=== PATIENT | male | born 1980 | race Caucasian/White ===

== ENCOUNTER 2016-11-23 21:55 | Inpatient (IN) ==
[2016-11-23 23:32] LABS: MANUAL DIFF NEEDED? NO; URINE CULTURE NEEDED? NO; URINE MICRO REVIEW NEEDED? NO; URINE SOURCE CLEAN CATCH
[2016-11-23 23:34] LABS: BASO% 0.2 % (0.0-0.8); EOS# 0.04 X1000 (0.0-0.7); EOS% 0.2 % (0.0-10.0); HEMATOCRIT 38.4 % (42.0-52.0); HEMOGLOBIN 12.8 g/dL (14.0-18.0); IMM GRAN# 0.07 X1000 (0.0-0.04); IMM GRAN% 0.4 % (0.0-0.5); LYMPH% 13.3 % (20.5-51.1); MCH 28.9 PG (27-31); MCHC 33.3 g/dL (33-37); MCV 86.7 FL (81-99); MONO# 1.53 X1000 (0.11-0.59); MONO% 9.3 % (1.7-9.3); MPV 8.8 FL (7.4-10.4); NEUT% 76.6 % (42.2-75.2); PLT 675 X1000 (130-400); RBC 4.43 XMIL (4.7-6.1)
[2016-11-23 23:36] LABS: BILIRUBIN URINE NEGATIVE (NEGATIVE); BLOOD URINE MODERATE (NEGATIVE); COLOR YELLOW; GLUCOSE URINE NEGATIVE (NEGATIVE); LEUKOCYTES URINE NEGATIVE (NEGATIVE); NITRITE URINE NEGATIVE (NEGATIVE); PROTEIN URINE TRACE mg/dL (NEGATIVE); SP GRAVITY URINE 1.028; TURBIDITY URINE CLEAR (CLEAR); UR EPITHELIAL CELLS <10 /HPF (<10); URINE BACTERIA NEGATIVE /HPF; URINE RBC <10 /HPF (<10); URINE WBC <10 /HPF (<10); UROBILINOGEN URINE NORMAL (NORMAL)
[2016-11-23 23:59] LABS: AGAP 15; ALKALINE PHOSPHATASE 63 U/L (32-122); BUN 17 mg/dL (8-22); CALCIUM 9.5 mg/dL (8.8-10.2); CHLORIDE 100 mmol/L (98-107); COSMO 285; GOT 24 U/L (10-34); GPT 13 U/L (10-44); LIPASE 15 U/L (13-60); POTASSIUM 4.2 mmol/L (3.5-5.1); SODIUM 142 mmol/L (136-145); TCO2 27 mmol/L (25-35); TOTAL PROTEIN 8.2 g/dL (6.3-8.3)
--- NOTE | 2016-11-24 00:14 | PROVIDER DOCUMENTATION ---
This chart was entered by Carlton Joseph Scribe, acting as scribe for Angel Cornelius MD. HPI-Abdominal Pain/GI Problem - General Chief Complaint: Abdominal Pain Stated Complaint: LT SIDE PAIN Time Seen by Provider: 11/23/16 22:12 Source: patient, ophthalmology technician Allergies/Adverse Reactions: Patient Allergies Allergy/AdvReac Type Severity Reaction Status Date / Time No Known Allergies Allergy Verified 11/23/16 23:10 Home Medications: Home Medication List Medication Instructions Recorded Confirmed Last Taken Type Meloxicam [Meloxicam] 1 each PO DAILY 11/23/16 11/23/16 Unknown History - History of Present Illness-ABD Nature of Presenting Problems: Pt suzanna 36 yowm who presents ot ER with CC of constant left sided abdominal pain x1-2 months. Pt reports that he feels like he may have had a subjective fever, but never checked with a thermometer. Pt denies N/V/D/chills/hematochezia /hematemesis/or any other sxs. Pt speaks little [place], first language is [place], translation line used for HPI. Pt reports his last meal was at 1300- fried chicken. Abdominal Pain Onset Location: reports: LUQ, LLQ Pain Radiation: reports: no radiation Quality of Pain: reports: dull, sharp, throbbing Severity in ED: reports: moderate Onset/Duration: reports: other (1-2 months) Timing: reports: still present Associated Symptoms: reports: swelling/mass in abdomen. denies: anxiety, arm pain, back/neck pain, chest pain, constipation, diaphoresis, diarrhea, dizziness , fatigue, fever/chills, heartburn, loss of appetite, muscle aches, nausea, shortness of breath, syncope, vomiting, trouble walking Last BM: unsure Dark Stools Present?: reports: none noticed Rectal Bleeding: reports: none Rectal Pain: reports: none Emesis Description: reports: none Review of Systems - Adult - REVIEW OF SYSTEMS - ADULT Constitutional: denies: chills, fever, fatique, night sweats, weight gain, weight loss Eyes: reports: no symptoms reported Ears, Nose, Mouth & Throat: reports: no symptoms reported Cardiovascular: reports: no symptoms reported Respiratory: reports: no symptoms reported Gastrointestinal: reports: abdominal pain. denies: hematemesis, constipation, diarrhea, difficulty swallowing, frequent heartburn, nausea, poor appetite, rectal bleeding, vomiting Genitourinary: denies: dysuria, flank pain, hematuria, urinary retention Musculoskeletal: denies: bone pain, back pain, joint pain, muscle aches, muscle weakness, neck pain Integumentary: reports: no symptoms reported Neurological: reports: no symptoms reported Psychiatric: reports: no symptoms reported Endocrine: reports: no symptoms reported Hematologic/Lymphatic: reports: no symptoms reported Allergic/Immunologic: reports: no symptoms reported All Other Systems: Reviewed and Negative Past History - Adult - PAST MEDICAL HISTORY-ADULT Review of Records: reports: Nursing Assessment Review, Medications Reviewed - PRIOR SURGERIES/PROCEDURES Surgical/Procedure History: reports: other (right inguinal hernia repair at age 6) - IMMUNIZATION STATUS Childhood Immunizations: See Nurse Assessment Flu Vaccine: See Nurse Assessment Physical Exam-General - PHYSICAL EXAM-ADULT Initial Vital Signs Reviewed: Yes - CONSTITUTIONAL General Appearance: appears well, alert, no apparent distress - EYES Eyes: PERRL/EOMI, pink conjunctivae - HEAD, EARS, NOSE, MOUTH & THROAT HENMT: moist mucous membranes, TMs normal, pharynx normal - NECK Neck: non-tender, full range of motion, supple. negative: limited range of motion, lymphadenopathy - RESPIRATORY Respiratory: chest non-tender, lungs clear, normal breath sounds, no pleuratic chest pain, no respiratory distress, no accessory muscle use. negative: respiratory distress, decreased breath sounds, accessory muscle use, wheezing - CARDIOVASCULAR Cardiovascular: normal peripheral pulses, regular rate, rhythm. negative: bradycardia, tachycardia, irregularly irregular - GASTROINTESTINAL (ABDOMEN) Abdominal Exam: normal bowel sounds, soft, no organomegaly, tenderness (LLQ/LUQ) , mass (lateral to left umbilicas). negative: non tender, no pulsatile mass - MUSCULOSKELETAL Back Exam: no CVA tenderness, no vertebral tenderness Extremity: normal range of motion, non-tender, normal gait, no pedal edema, no calf tenderness, normal capillary refill, pelvis stable. negative: deformity, erythema, inflammation, swelling, tenderness - SKIN Integumentary: normal color, normal turgor, warm/dry. negative: abrasion(s), diaphoresis, ecchymosis, erythema, laceration(s), swelling, tenderness, warm - PSYCHIATRIC Psych/Mental Status: normal mood/affect, normal thought content, normal thought process, oriented x 3 Progress - PLAN OF CARE/RESULTS Progress/Plan/Lab Results: Vital Signs - 8 hr 11/23/16 22:06 Temperature 99.3 F Pulse Rate 90 Respiratory Rate 18 Blood Pressure 121/91 O2 Sat by Pulse Oximetry 100 Orders Category Date Time Status ABDOMEN/PELVIS W/O CONTRAST [CT] Stat Exams 11/23/16 22:47 Ordered CBC WITH ELECTRONIC DIFF [HEME] Stat Lab 11/23/16 22:46 Uncollected COMPREHENSIVE METABOLIC PANEL [CHEM] Stat Lab 11/23/16 22:46 Uncollected LIPASE [CHEM] Stat Lab 11/23/16 22:46 Uncollected URINALYSIS W/POSS RFLX CULT-1 [URINALYSIS] Stat Lab 11/23/16 22:46 Uncollected Result Diagrams: 11/23/16 23:10 11/23/16 23:10 - CT/MRI 1 CT Study: Abdomen, Pelvis Impression: See EMR Report (Left rectus abdominis sheath abnormality is likely a large abscess. Deep to this sheath is early abscess or phlegmon containing radiopaque foreign bodies (each measuring approximately 2 cm each) - Dr. Sethi (Radiologist)) CT Results: See report - CONSULTS/PCP/HOSPITALIST Notification #1 *Consult/PCP/Hospitalist*: Dr. Nicholson (Surgeon) Time Discussed: 01:06 Reason/Comments: request starting IV Vancomycin & Zosyn, admit to hospital Consult Disposition: Admit Departure - Departure Date of Disposition Decision: 11/24/16 Time of Disposition Decision: 01:10 DIAGNOSIS: Abdominal abscess Disposition: ADMITTED INPATIENT 09 Certified Medical Emergency: Emergent Condition: Stable Referrals and Follow-Ups: None,PCP [Primary Care Provider] - - Critical Care Note This patient required my direct & personal management of CC.: Yes This chart was documented by the indicated scribe, (Carlton Joseph Scribe) and accurately reflects the services I performed and decisions made by me, Angel Cornelius MD, as attested by the provider's signature.
[2016-11-24] MEDS ORDERED: ZOSYN 3.375 GM/NS 3.375 GM/50 ML IVPB IV ONE (00:49)
[2016-11-24] MEDS ORDERED: NICODERM PATCH TD ONE (01:04)
[2016-11-24] MEDS ORDERED: VANCOMYCIN 1 GM/NS 1 GM/250 ML IVPB IV ONE (01:08)
[2016-11-24] MEDS ORDERED: MORPHINE IV PRN (01:11)
[2016-11-24] MEDS ORDERED: NS 2,400 ML IV ONE (01:11)
[2016-11-24] MEDS ORDERED: ZOFRAN IV PRN ×2 (01:11→11:26)
--- NOTE | 2016-11-24 06:26 | Diag Imaging Result Doc PS360 ---
EXAM: CT ABD/PELVIS W/ IV CONT ONLY HISTORY: left sided abdominal mass TECHNIQUE: Dose reduction protocol COMPARISON: None. FINDINGS: The gallbladder is partly contracted. No adjacent inflammation or calcified stones. Normal spleen, pancreas, adrenal glands, and liver. Normal enhancement of the kidneys. No hydronephrosis. Normal aorta. There are multiple small para-aortic lymph nodes. There is a multiloculated faintly enhancing fluid collection within the left rectus abdominis measuring approximately 3.3 x 4.2 x 6.2 cm. Adjacent to this, but transabdominally, is an area of inflammation and possible early abscess formation measuring 4.3 x 2.5 x 4.3 cm. There are two linear foreign bodies with appearance of small wires, which measure approximately 2 cm, within this. No bowel obstruction. The urinary bladder is moderately distended and appears normal. IMPRESSION: Multiloculated area within the left rectus abdominis likely represents an abscess. Likely early abscess adjacent to this within the abdominal cavity. This contains two small foreign bodies. A preliminary report was given at 1:00 AM. Electronically signed by Alberto Snyder 11/24/2016 6:24 AM
[2016-11-24] MEDS ORDERED: XYLOCAINE-MPF 2% ONE (07:16)
[2016-11-24] MEDS ORDERED: QUELICIN (DOSE) ONE (07:16)
[2016-11-24] MEDS ORDERED: SODIUM CHLORIDE 0.9% 10 ML ONE (07:16)
[2016-11-24] MEDS ORDERED: DIPRIVAN 1% ONE ×2 (07:16→09:11)
[2016-11-24] MEDS ORDERED: FENTANYL ONE (07:16)
[2016-11-24] MEDS ORDERED: NORCURON ONE (07:16)
[2016-11-24] MEDS: ZOSYN 3.375 GM/NS 3.375 GM/50 ML IVPB IV SCH ×3 (08:04→21:42)
[2016-11-24] MEDS ORDERED: VERSED ONE (08:18)
[2016-11-24] MEDS ORDERED: DILAUDID ONE (08:32)
[2016-11-24] MEDS ORDERED: ZOFRAN ONE (08:35)
[2016-11-24] MEDS ORDERED: DECADRON ONE (08:35)
--- NOTE | 2016-11-24 08:47 | HISTORY AND PHYSICAL ---
ADMITTING DIAGNOSIS: Rectus sheath abscess and foreign body in the abdomen. HISTORY OF PRESENT ILLNESS: A 36-year-old gentleman from [place] who presents to the ER with complaints of constant left-sided abdominal pain for 1-2 months. He reported that he had subjective fevers but never checked it at home. He denies nausea, vomiting, or any changes in his bowel habits. He reports the pain mostly on the left side. I did discuss everything with him through the lithographic photographer phone. Again, his left upper quadrant and left lower quadrant described as dull, sharp or throbbing, moderate intensity. On the CT scan done in the emergency department, there was a foreign body that looked like a nail. He was involved in the [place] war and did 3 tours but denies any kind of ballistic wound near this area or penetrating trauma that he can remember. PAST MEDICAL HISTORY: None. PAST SURGICAL HISTORY: Inguinal hernia repair. HOME MEDICATIONS: Meloxicam. ALLERGIES: None. FAMILY HISTORY: Reviewed with patient and noncontributory. SOCIAL HISTORY: Former war . REVIEW OF SYSTEMS: A full 10 point review of systems was obtained and negative except as specified in the HPI. PHYSICAL EXAMINATION: VITAL SIGNS: The patient is currently afebrile. His vital signs are stable. GENERAL: No acute distress. Resting comfortably but appears uncomfortable when he moves. HEENT: Normocephalic, atraumatic. Pupils equal, round, react to light. Mucous membranes moist. Oropharynx benign. NECK: Supple. Trachea midline. CARDIOVASCULAR: Regular rate and rhythm. LUNGS: Grossly clear. ABDOMEN: Soft. Tender on palpation on the left side. I did not see any ballistic wound injuries. He does have some localized guarding in that area. EXTREMITIES: Moves all extremities. NEUROLOGIC: Grossly intact. SKIN: No signs of jaundice. VASCULAR: All extremities perfused. LABORATORY: White blood cell count 16, hematocrit 38, platelet count 675,000. Remainder of labs reviewed. CT scan independently reviewed and radiology report reviewed, and noted above. ASSESSMENT/PLAN: A 36-year-old male with a rectus sheath infection and foreign body in his abdomen. Rectus sheath infection with foreign body in his abdomen. At this time, I suspect the foreign body is either a nail and potentially might have caused injury to his small bowel. Given the infection, we will need to do an exploratory laparotomy and drain the infection. I discussed with him all this via the lithographic photographer phone. We will obtain a consent. Patient is on vancomycin and Zosyn. cc: Alexis Nicholson MD
[2016-11-24] MEDS ORDERED: ZEMURON ONE (08:58)
[2016-11-24] MEDS ORDERED: NEOSTIGMINE ONE (08:58)
[2016-11-24] MEDS ORDERED: TORADOL ONE (09:13)
[2016-11-24] MEDS: DILAUDID ONE (09:59)
[2016-11-24] MEDS ORDERED: MORPHINE PCA ONE (10:17)
[2016-11-24] MEDS ORDERED: LR 1,000 ML ONE (10:17)
[2016-11-24] MEDS: LR 1,000 ML IV SCH ×2 (12:59→21:57)
--- NOTE | 2016-11-24 14:24 | OPERATIVE NOTE ---
PROCEDURE DATE: 11/24/2016 PREOPERATIVE DIAGNOSES: 1. Intraabdominal abscess. 2. Abdominal wall abscess on the left. POSTOP DIAGNOSES: 1. Intraabdominal abscess. 2. Abdominal wall abscess on the left. PROCEDURE: 1. Exploratory laparotomy. 2. Partial omentectomy. 3. Drainage of intraabdominal abscess. 4. Drainage of abdominal wall abscess. SURGEON: Alexis Nicholson MD. TEACHER VOCAL: None. ANESTHESIA: General endotracheal . INTRAOPERATIVE FINDINGS: As above. COMPLICATIONS: None at time of dictation. ESTIMATED BLOOD LOSS: 10 mL. SPECIMENS REMOVED: Omentum. DRAINS: 10 mm MARINO drain. BRIEF HISTORY: The patient is a 36-year-old [place] gentleman who came in with abdominal pain. He had a CT scan that showed intraabdominal abscess extending to rectus muscle left the potential for foreign body. It is felt the patient would benefit from exploratory laparotomy. The risks, benefits, alternatives were discussed. All questions answered via product delivery specialist phone. DESCRIPTION OF PROCEDURE: After informed consent was obtained patient brought over the operative theater, transferred to operative theater, placed in supine position. General endotracheal anesthesia was then performed without complication. A formal time-out was then performed confirming patient, date, procedure. All were in agreement. At that time attention given abdomen. Standard midline incision was made through which we entered the abdomen. Upon this in the left mid aspect of the abdomen we found an densely adherent piece of omentum which we dissected off the abdominal wall and kind of purulence which we sent for culture. We broke it away. We noticed a very thickened aspect of omentum. This likely contained the foreign body although too small to actually feel. We elected do partial omentectomy by removing this area approximately 5 cm in diameter total an took this area out. We reexamined abdominal wall there was a small area of fluctuance noted. We made a small chris this area that was at the lateral border of the rectus which we drained a significant amount of purulence. This cavity did extend up through the fascia into the rectus muscle itself. We irrigated out the abdomen copiously after we drained it. Given what we found around the small bowel did not see any other injury to the small bowel or colon. After we had removed the omentum and drained the abdominal and abdominal wall abscess we elected to place a drain, we placed a 10 mm drain from the left lower quadrant. We actually placed part of it up into the rectus muscle. We did not close the fascia given the fact that needed to be drained. There is the potential for the patient to develop a hernia down the road at this area given the fascial defect but we irrigated out the abdomen copiously. We then closed the fascia at its midline with interrupted Vicryl stitches and closed the skin loosely with jenny. The patient tolerated procedure well, was transferred back to recovery room in stable condition. Postoperatively will keep him on antibiotics and keep drain and monitor him closely. cc: Alexis Nicholson MD
[2016-11-24] MEDS: PEPCID PO SCH (14:45)
[2016-11-24] MEDS: PERIDEX MT SCH ×2 (14:46→21:42)
[2016-11-24] MEDS: VANCOMYCIN 2,000 MG in NS 500 ML IV SCH (15:22)
[2016-11-24] MEDS: HEPARIN SUBQ SCH (21:42)
[2016-11-25] MEDS: LR 1,000 ML IV SCH ×3 (01:35→17:46)
[2016-11-25] MEDS: ZOSYN 3.375 GM/NS 3.375 GM/50 ML IVPB IV SCH ×4 (02:58→20:58)
[2016-11-25] MEDS: PEPCID PO SCH ×2 (02:58→20:59)
[2016-11-25] MEDS: VANCOMYCIN 2,000 MG in NS 500 ML IV SCH ×2 (04:01→17:04)
[2016-11-25] MEDS: HEPARIN SUBQ SCH ×3 (05:03→21:00)
[2016-11-25] MEDS: MORPHINE PCA IV PRN (05:03)
[2016-11-25 06:06] LABS: MANUAL DIFF NEEDED? NO
[2016-11-25 06:13] LABS: BASO% 0.2 % (0.0-0.8); EOS# 0.03 X1000 (0.0-0.7); EOS% 0.2 % (0.0-10.0); HEMATOCRIT 35.2 % (42.0-52.0); HEMOGLOBIN 11.5 g/dL (14.0-18.0); IMM GRAN# 0.07 X1000 (0.0-0.04); IMM GRAN% 0.5 % (0.0-0.5); LYMPH# 2.35 X1000 (1.2-3.4); LYMPH% 15.9 % (20.5-51.1); MCH 28.5 PG (27-31); MCHC 32.7 g/dL (33-37); MCV 87.3 FL (81-99); MONO# 1.21 X1000 (0.11-0.59); MONO% 8.2 % (1.7-9.3); MPV 8.9 FL (7.4-10.4); PLT 596 X1000 (130-400); RBC 4.03 XMIL (4.7-6.1)
[2016-11-25 06:33] LABS: AGAP 10; BUN 9 mg/dL (8-22); CALCIUM 8.9 mg/dL (8.8-10.2); CHLORIDE 104 mmol/L (98-107); COSMO 282; POTASSIUM 3.8 mmol/L (3.5-5.1); SODIUM 142 mmol/L (136-145); TCO2 28 mmol/L (25-35)
--- NOTE | 2016-11-25 07:30 | PROGRESS NOTE ---
DATE: 11/25/2016 SUBJECTIVE: Patient doing okay. No major issues. He said his pain is decently controlled. OBJECTIVE: Vital Signs: Patient is currently afebrile. His vital signs have been stable. General: No acute distress. Resting comfortably. Cardiovascular: Regular rate and rhythm. Lungs: Grossly clear. Abdomen: Soft. Minimally distended. Incision with dressing in place. MARINO with serosanguineous output. He seems to be appropriately tender. LABORATORY: White blood cell count is 14, hematocrit is 35, platelet count 596,000. Remainder of labs reviewed and within normal limits. ASSESSMENT AND PLAN: This is a 36-year-old male status post exploratory laparotomy with drainage of intra-abdominal and intramuscular abscess. Postoperative state. At this time the patient is doing well. His microbiology thus far has shown gram-positive and gram-negative species. Will keep him on his vancomycin and Zosyn for right now. We will keep his MARINO drain in place. I have started him on a clear liquid diet and will advance him once he has more return of bowel function. We will continue current treatment. cc: Alexis Nicholson MD
[2016-11-25] MEDS: PERIDEX MT SCH ×2 (08:09→20:59)
[2016-11-25] MEDS: NICODERM PATCH TD SCH (10:19)
[2016-11-25] MEDS: DILAUDID ONE (10:21)
[2016-11-25] MEDS ORDERED: TYLENOL PO ONE (16:45)
--- NOTE | 2016-11-25 17:10 | Diag Imaging Result Doc PS360 ---
EXAM: CHEST-1 VIEW HISTORY: back pain TECHNIQUE: Semiupright portable AP COMPARISON: None. FINDINGS: Poor inspiratory effort. The heart is mildly prominent. The vessels are mildly distended. There is basilar atelectasis. There may be small underlying infiltrates as well. No pleural effusions identified. IMPRESSION: Basilar atelectasis with possible underlying small infiltrates in addition to mild pulmonary edema. Electronically signed by Alberto Snyder 11/25/2016 5:08 PM
[2016-11-25] MEDS ORDERED: VANCOMYCIN IV PER PHARMACY MISC SCH (17:15)
[2016-11-25] MEDS: FLEXERIL PO SCH ×2 (17:25→20:59)
[2016-11-25 17:38] LABS: MANUAL DIFF NEEDED? NO
[2016-11-25 17:43] LABS: BASO% 0.4 % (0.0-0.8); EOS% 0.6 % (0.0-10.0); HEMATOCRIT 36.1 % (42.0-52.0); HEMOGLOBIN 11.9 g/dL (14.0-18.0); IMM GRAN# 0.08 X1000 (0.0-0.04); IMM GRAN% 0.5 % (0.0-0.5); LYMPH# 1.91 X1000 (1.2-3.4); LYMPH% 11.6 % (20.5-51.1); MCH 28.9 PG (27-31); MCV 87.6 FL (81-99); MONO# 1.58 X1000 (0.11-0.59); MONO% 9.6 % (1.7-9.3); MPV 8.5 FL (7.4-10.4); NEUT% 77.3 % (42.2-75.2); PLT 677 X1000 (130-400); RBC 4.12 XMIL (4.7-6.1)
[2016-11-25 18:02] LABS: AGAP 10; BUN 9 mg/dL (8-22); CALCIUM 8.6 mg/dL (8.8-10.2); CHLORIDE 101 mmol/L (98-107); COSMO 280; POTASSIUM 3.3 mmol/L (3.5-5.1); SODIUM 140 mmol/L (136-145); TCO2 29 mmol/L (25-35)
[2016-11-25 19:09] LABS: CK INDEX 0.3 (0.0-2.5)
[2016-11-26] MEDS: MORPHINE PCA IV PRN (00:11)
[2016-11-26] MEDS: ZOSYN 3.375 GM/NS 3.375 GM/50 ML IVPB IV SCH ×6 (00:23→22:45)
[2016-11-26] MEDS: VANCOMYCIN 2,000 MG in NS 500 ML IV SCH ×2 (02:35→16:19)
[2016-11-26] MEDS: HEPARIN SUBQ SCH ×3 (05:00→22:05)
[2016-11-26] MEDS: LR 1,000 ML IV SCH ×5 (05:01→18:35)
--- NOTE | 2016-11-26 06:37 | EKG Report ---
Test Performed on : 11/25/2016 4:49:04 PM Test Reason : elevated heart rate Blood Pressure : / mmHG Vent. Rate : 106 BPM Atrial Rate : 106 BPM P-R Int : 118 ms QRS Dur : 080 ms QT Int : 338 ms P-R-T Axes : 064 039 029 degrees QTc Int : 448 ms Sinus tachycardia. Possible Left atrial enlargement Borderline ECG No previous ECGs available Confirmed by Dennis Hall MD ([id number]) on 11/27/2016 12:26:08 PM
--- NOTE | 2016-11-26 06:56 | PROGRESS NOTE ---
DATE: 11/26/2016 SUBJECTIVE: Yesterday afternoon, the patient did have an acute episode of increase in pain. Through an extensive discussion with him via the educational interpreter phone, it sounds like it is back pain that has been chronic for several months but has been worsened by the fact that he has been lying in bed. I did get a chest x-ray, labs, and EKG which did not show any acute pathology. After discussion with him, I started him on Flexeril which has helped somewhat. He is tolerating his clear liquid diet thus far. He has not passed any gas. OBJECTIVE: Vital Signs: Patient's current temperature is 99.7 degrees, pulse 100, blood pressure 127/70, O2 saturation 93%. General Examination: No acute distress. Resting comfortably. Sleeping in bed. HEENT: Normocephalic, atraumatic. Pupils equal, round, reactive to light. Cardiovascular: Regular rate and rhythm. Lungs: Grossly clear. Abdomen: Soft, appropriately tender. Back: The patient does have some back pain in his lumbar and thoracic spine. Laboratory: Reviewed from yesterday. White blood cell count is 16, hematocrit 36. Remainder of labs reviewed. Chest x-ray from yesterday and EKG from yesterday reviewed. ASSESSMENT AND PLAN: A 36-year-old, male status post exploratory laparotomy with drainage of intra-abdominal, intramuscular abscess. Postoperative state. At this time, the patient seems to be doing okay. Given his back pain, I have ordered an MRI of the lumbar and thoracic spine to evaluate further. I started him on Flexeril with which he seems to be doing well. I will continue him on vancomycin and Zosyn. So far, his cultures just have gram-negative rods and gram-positive cocci. Need further time for speciation. He seems to be doing well clinically. We will continue to monitor. cc: Alexis Nicholson MD
--- NOTE | 2016-11-26 09:21 | Diag Imaging Result Doc PS360 ---
EXAM: MRI LUMBAR SPINE W/WO CONTRAST HISTORY: lower back pain TECHNIQUE: Axial and sagittal images obtained in multiple sequences. These are followed by postcontrast axial and sagittal images. COMPARISON: None. FINDINGS: There is good alignment to the lumbar spine. No compressed vertebra. No subluxation. The conus is at T12-L1. No disc herniation. No disc fragment. No disc bulge. There is facet hypertrophy at L4-5 and L5-S1, but no significant neural foraminal narrowing. No enhancing lesion on the post contrasted images. IMPRESSION: Normal MRI of the lumbar spine. Electronically signed by Alberto Snyder 11/26/2016 9:19 AM
[2016-11-26] MEDS: NICODERM PATCH TD SCH (09:23)
[2016-11-26] MEDS: PERIDEX MT SCH ×2 (09:23→22:04)
[2016-11-26] MEDS: PEPCID PO SCH ×2 (09:23→22:05)
[2016-11-26] MEDS: FLEXERIL PO SCH ×3 (09:23→22:04)
--- NOTE | 2016-11-26 09:24 | Diag Imaging Result Doc PS360 ---
EXAM: MRI THORACIC SPINE W/WO CONTR HISTORY: Back pain TECHNIQUE: Axial and sagittal images obtained in multiple sequences. These are followed by postcontrast axial and sagittal images. COMPARISON: None. FINDINGS: There is mild scoliosis. No compressed vertebra. No subluxation. No disc herniation. No disc fragment. No spinal stenosis. No cord compression. No focal abnormality to the thoracic cord. No enhancing lesion on the post contrasted images. IMPRESSION: Mild scoliosis, otherwise normal MRI of the thoracic spine. Electronically signed by Alberto Snyder 11/26/2016 9:22 AM
[2016-11-27] MEDS: LR 1,000 ML IV SCH (03:33)
[2016-11-27] MEDS: MORPHINE PCA IV PRN (04:50)
[2016-11-27] MEDS: ZOSYN 3.375 GM/NS 3.375 GM/50 ML IVPB IV SCH (04:57)
[2016-11-27] MEDS: HEPARIN SUBQ SCH ×3 (04:59→19:33)
[2016-11-27] MEDS: VANCOMYCIN 2,000 MG in NS 500 ML IV SCH (06:06)
[2016-11-27] MEDS: PERIDEX MT SCH ×2 (09:05→19:33)
[2016-11-27] MEDS: FLEXERIL PO SCH ×3 (09:06→19:30)
[2016-11-27] MEDS: PEPCID PO SCH ×2 (09:06→19:30)
[2016-11-27] MEDS: NICODERM PATCH TD SCH (09:06)
[2016-11-27] MEDS: SEPTRA DS PO SCH ×2 (09:06→19:30)
--- NOTE | 2016-11-27 13:45 | PROGRESS NOTE ---
DATE: 11/27/2016 SUBJECTIVE: Patient doing better. Pain is better controlled. His MRI yesterday was negative, and the Flexeril seems to be helping. He has had a bowel movement. OBJECTIVE: Vital Signs: Patient is currently afebrile. His vital signs have been stable. General exam: No acute distress. Cardiovascular: Regular rate and rhythm. Lungs: Grossly clear. Abdomen: Soft, appropriately tender. Incision is healing well. MARINO drain in place with serosanguineous output. LABORATORY: None this morning. ASSESSMENT/PLAN: A 36-year-old, male status post exploratory laparotomy with drainage of intra-abdominal and intramuscular abscess. 1. Postoperative state at this time. Patient is doing well. We will advance him to a regular diet. Will stop his intravenous fluids. We will stop his APPOINTMENT CLERK and put him on oral pain medicine and oral antibiotics. We will stop the vancomycin and Zosyn. At this time, we will continue to ambulate the patient. Hopefully, we can get him discharged here tomorrow to discuss this all with the patient via the ticket clerk phone. I did discuss the magnetic resonance imaging results with him via the ticket clerk phone. I also discussed with him the risk of potential hernia at his infection site down the road. Given the fact that only gram- positive cocci have grown, I will start him on Bactrim, but we could potentially get some gram- negative coverage with Bactrim also. cc: Alexis Nicholson MD
[2016-11-27] MEDS: NORCO-10 PO PRN (19:30)
[2016-11-28] MEDS: FLEXERIL PO SCH ×2 (00:48→08:43)
[2016-11-28] MEDS: SEPTRA DS PO SCH ×2 (00:48→08:43)
[2016-11-28] MEDS: HEPARIN SUBQ SCH ×2 (00:49→06:47)
[2016-11-28] MEDS: PERIDEX MT SCH ×2 (00:49→08:43)
[2016-11-28] MEDS: PEPCID PO SCH ×2 (00:49→08:43)
[2016-11-28 07:41] VITALS: BP 123/78
[2016-11-28] MEDS: NICODERM PATCH TD SCH (08:43)
[2016-11-28] MEDS: NORCO-10 PO PRN (10:48)
--- NOTE | 2016-11-30 01:03 | DISCHARGE SUMMARY ---
ADMISSION DATE: 11/24/2016 DISCHARGE DATE: 11/28/2016 CONSULTATIONS: None. PROCEDURES: On 11/24/2016, the patient underwent exploratory laparotomy with drainage of intra- abdominal wall abscess and intra-abdominal abscess. He also had a partial omentectomy. BRIEF HISTORY AND COURSE OF STAY: The patient is a 36-year-old male, originally from [place], who was admitted with abdominal pain. He had a CT scan in the emergency department that showed intra-abdominal abscess with a foreign body. He was admitted and started on antibiotics. We sent him to the operating room as described above. He tolerated the procedure. On initial postop course, he had some initial back pain which he said was chronic. We got an MRI of his lumbar and thoracic spine which did not show any obvious pathology. We did start him on Flexeril and he seemed to improve. His overall clinical status improved at the point where he was having bowel movements and tolerating a regular diet. On 11/28/2016, it was felt that the patient would be safe to be discharged home. He does live in [place]. The nurses provided him all his information via the operations logistics analyst from which we have been in discussion ad using infrequently with the patient. We did discuss with him the need to have his prescriptions filled in the [facility]. We will give him prescriptions for pain medicine, antibiotics, and Flexeril. He will need to have followup with his primary care physician to have his jenny removed on postoperative day 14, but on the day of discharge, he was ambulating and tolerating p.o. No fever. Non- tachycardic. His incision was healing well. DISPOSITION: Home. DISCHARGE CONDITION: Stable. FOLLOWUP: Ideally, the patient will follow up with myself in 1 week, but he lives in [place], so he needs to at least follow up with his primary care physician. MEDICATIONS: Patient given prescriptions for Flexeril, [place], and Bactrim. cc: Alexis Nicholson MD
== END 2016-11-28 11:00 | disposition home or self-care (01) ==
LOC: ED 21:55 → 4N 11-24 01:18
PROVIDERS: ADMIT Surgery; ATTEND Surgery